=== PATIENT | male | born 2000 | race Caucasian/White ===

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

== ENCOUNTER 2020-05-20 16:19 | Inpatient (IN) ==
[2020-05-20] MEDS ORDERED: ALBUT/IPRATROP 3MG/0.5MG NEB 3 ML VIAL NEB ONE (16:51)
[2020-05-20] MEDS ORDERED: DEXAMETHASONE SOD INJ 10 MG/ML VIAL IV ONE (16:53)
[2020-05-20 17:09] LABS: Hematocrit (blood only) 48.5 % (42-52); Hemoglobin 16.9 g/dL (14.0-18.0); Immature Granulocytes # (auto) 0.03 K/uL (0.00-0.02); Immature Granulocytes % (auto) 0.2 %; Lymphocytes # (auto) 0.79 K/uL (1.2-3.4); Lymphocytes % (auto) 6.1 %; Mean Corpuscular Hemoglobin 31.4 pg (25-34); Mean Corpuscular Hgb Conc 34.8 g/dL (32-36); Mean Platelet Volume 11.5 fL (7.4-10.4); Monocytes # (auto) 0.17 K/uL (0.11-0.59); Monocytes % (auto) 1.3 %; Neutrophils # (auto) 11.89 K/uL (1.4-6.5); Neutrophils % (auto) 92.4 %; Platelet Count 216 K/uL (130-400); RDW Coefficient of Variation 12.8 % (11.5-14.5); Red Blood Count 5.39 M/uL (4.7-6.1); White Blood Count 12.88 K/uL (4.8-10.8)
[2020-05-20] MEDS ORDERED: MoRPHine SULFATE 4 MG/ML 1 ML CARP\\VIAL IV STA (17:21)
[2020-05-20] MEDS ORDERED: ONDANSETRON INJ 2 MG/ML 2 ML VIAL IV STA (17:21)
[2020-05-20 17:31] LABS: INR 1.2 (0.9-1.1); Partial Thromboplastin Time 26.4 Seconds (21.0-31.0); Prothrombin Time 11.9 Seconds (9.0-12.0)
[2020-05-20 17:32] LABS: Albumin Level 3.7 gm/dl (3.4-5.0); BUN Creatinine Ratio 13.6 (10-20); Calcium 8.7 mg/dl (8.5-10.1); Creatinine Clr Calc Pharmacy 109.5 ml/min; Est GFR (African American) 87.2; Est GFR (Non-African American) 75.2; Magnesium 1.9 mg/dl (1.8-2.4)
[2020-05-20 17:37] LABS: Albumin Globulin Ratio 1.2 (0.9-2); Bilirubin,Total 0.8 mg/dl (0.2-1); Globulin 3.1 gm/dl (2.5-4.0); Total Protein 6.8 gm/dl (6.4-8.2); Troponin I 0.015 ng/ml (0-0.045)
--- NOTE | 2020-05-20 18:02 | XRay Report ---
XR chest 1V portable HISTORY: 19 years-old Male Dyspnea acute shortness of breath COMPARISON: None TECHNIQUE: Portable AP view of the chest FINDINGS: Cardiac silhouette is normal in size. There is no pneumothorax or pleural effusion. Reticular opaciti es are noted along with ill-defined bilateral airspace opacities. Bones appear normal. IMPRESSION: Bilateral mixed interstitial and alveolar opacities are suggestive of a multifocal pneumo nitis. ACT 112: Negative or not required by law. The above report was generated using voice recognition software. It may contain grammatical, syntax o r spelling errors. Electronically signed by: Carlos Eduardo Bone M.D. 05/20/2020 6:00 PM
--- NOTE | 2020-05-20 18:47 | Emergency Department Note ---
Impression & Plan Pulmonary edema, Post-operative complication ED Provider Note NAME: LAVINIA BRITTON AGE: 19 SEX: M ARRIVES VIA: Ambulance INFORMANT: Patient, ED PROVIDER(S): Gabby Najera MD CHIEF COMPLAINT: Shortness of breath, postoperative left hip from PACU PLAN: Disposition: Inpatient Condition: Fair Referral: Hospitalist MEDICAL DECISION MAKING: This patient was evaluated and appeared to be in no significant distress. Patient was maintaining his oxygenation on 100% nonrebreather however had slight increased work of breathing. Chest x-ray confirms a pulmonary edema type picture although BNP is 6. Patient was placed on BiPAP and seemed to have significant improvement in his symptoms. Covid swab was obtained and is negative. He was negative in his preop work-up. A CT scan of the chest was performed to rule out pulmonary embolus given the patient's postoperative state. The study is negative for PE but is concerning for an infectious pneumonitis as opposed to pulmonary edema. Patient's clinical presentation is somewhat unclear although he does appear to be more stable on BiPAP. Case was discussed with the hospitalist service who will evaluate the patient for further management. Triage Nursing notes reviewed. Additional history obtained from Prior medical records reviewed Vital Signs: reviewed and remarkable for no significant abnormalities Differential diagnosis: Reactive airway disease, pneumonia, pneumothorax, COPD, CHF, infections, cardiac ischemia, pulmonary embolism, musculoskeletal, gastrointestinal, as well as other pathologies. ER treatment provided: DuoNeb treatment BiPAP IV dexamethasone Diagnostics interpreted by me: ECG: Normal sinus rhythm with sinus arrhythmia at 91 bpm. There is a rightward axis. RSR prime pattern suggesting a right intraventricular conduction delay. QTc is 432. Normal axis. No acute ST segment change. No PVC, no PAC Cardiac Monitoring: An order for cardiac monitoring was placed and the patient is noted to be in a sinus 109 beats per minute Laboratory studies: See below Imaging studies: XR chest 1V portable HISTORY: 19 years-old Male Dyspnea acute shortness of breath COMPARISON: None TECHNIQUE: Portable AP view of the chest FINDINGS: Cardiac silhouette is normal in size. There is no pneumothorax or pleural effusion. Reticular opacities are noted along with ill-defined bilateral a irspace opacities. Bones appear normal. IMPRESSION: Bilateral mixed interstitial and alveolar opacities are suggestive of a multifocal pneumonitis. ACT 112: Negative or not required by law. The above report was generated using voice recognition software. It may contain grammatical, syntax or spelling errors. Electronically signed by: Carlos Eduardo Bone M.D. 05/20/2020 6:00 PM Dictated: 05/20/201754Transcribed: 05/20/201754 CT angio chest PE protocol CT DOSE: 422.35 mGy.cm HISTORY: 19 years-old Male with PE. Acute shortness of breath. TECHNIQUE: Multiple CTA images of the chest were obtained after the intravenous administration of Optiray 320. Coronal and sagittal MIPS were obtained from the axial data set and were submitted for review. All measurements were obtained according to NASCET criteria. A dose lowering technique was utilized adhering to the principles of ALARA. COMPARISON: Chest radiograph of same day. FINDINGS: CTA: The heart is normal in size. No pericardial effusion. No thoracic aortic aneurysm or dissection. Patency of the imaged great vessels. The pulmonary artery is suboptimally opacified secondary to contrast bolus timing. No central pulmonary emboli identified. CT CHEST: Residual thymic tissue anterior mediastinum. Unremarkable thyroid. There is no adenopathy. No pneumothorax or pleural effusion. Extensive bilateral groundglass and alveolar opacities are noted within a centrilobular predominant distribution within all segments bilaterally demonstrating relative subpleural sparing. Trace amount of pneumomediastinum is noted which is seen along the right paratracheal tissues, right tracheoesophageal recess tracking along the right mainstem bronchus. Central airways are patent. No acute process of the imaged upper abdomen. Unremarkable soft tissues. Bones appear intact. There is no acute fracture. IMPRESSION: 1. Limited exam as above. No central pulmonary emboli identified. 2. Extensive bilateral groundglass and alveolar opacities with relative subpleural sparing is suggestive of an infectious or inflammatory pneumonitis with noncardiogenic pulmonary edema considered less likely. 3. Trace pneumomediastinum, possibly from bronchoalveolar injury. 4. No pleural effusion or adenopathy. ACT 112: Negative or not required by law. The above report was generated using voice recognition software. It may contain grammatical, syntax or spelling errors. Electronically signed by: Carlos Eduardo Bone M.D. 05/20/2020 7:53 PM Dictated: 05/20/201944Transcribed: 05/20/201944 Consultation(s): Hospitalist HPI: Blanca/M arrives for evaluation of low oxygen saturations and increased work of breathing postoperatively. The patient had a labrum tear and his left hip was operated on at the surgical center. Patient had an episode of stridor immediately postoperative on his way to the PACU. Shortly thereafter he developed tachypnea and hypoxia. According to the anesthesia notes, the patient is suspected to have a negative pressure pulmonary edema. Patient tested neg ative for Covid on 05/14/2020. He has had a cough since being in the PACU and was found to be in the mid 80s on oxygen mask by EMS. He was switched to nonrebreather and has been saturating in the mid 90s. Patient denies any fever, vomiting, chest pain. He is asking for food as he is hungry. ROS: See above HPI for pertinent positives & negatives. A total of 10 systems re viewed and were otherwise negative. PAST MEDICAL HISTORY:See Below PAST SURGICAL HISTORY:See Below FAMILY HISTORY:See Below SOCIAL HISTORY:See Below HOME MEDICATIONS:See Below ALLERGIES:See Below VITALS:See Below PHYSICAL EXAMINATION: Vital signs reviewed. General: Well-appearing 19-year-old male, in no significant distress. HEENT: No scleral icterus, PERRLA, neck supple. Atraumatic. Cardiovascular: Tachycardic but regular, no extra sounds. Pulmonary: Increased work of breathing, hypoxic on room air. Tachypnea on nonrebreather but maintaining oxygenation. Repetitive, dry cough. No significant crackles appreciated, wheezing type breath sounds appreciated Abdomen: Soft, nontender, nondistended, positive bowel sounds. Musculoskeletal: Atraumatic, no peripheral edema. Neurologic: Patient awake alert and oriented x 3 Skin: Warm, dry, no rash I have personally spent greater than 40 minutes of critical care time in the direct management of this patient. This includes bedside care, interpretation of diagnostic studies, and testing, discussion with consultants, patient, and family members, and other required patient management activities. This 40 minutes is in excess of all separately billable procedures. 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 Beliefs That Will Affect Care: None Current Living Situation: Other Feels Safe at Home: Yes Assistive Devices: None Allergies Allergies Allergy/AdvReac Type Severity Reaction Status Date / Time No Known Allergies Allergy Verified 05/20/20 18:34 Home Meds Home Medications Medication Instructions Recorded Confirmed diclofenac sodium 75 mg PO BID PRN 05/16/20 05/20/20 Results & Data (ED) Vital Signs Vital Signs - 24 hr 05/20/20 16:23 05/20/20 16:28 05/20/20 16:30 Temperature 36.9 C Temperature Source Oral Pulse Rate 100 H 82 99 H Pulse Rate [Right Finger] Pulse Rate from SpO2 Sensor 100 H 86 96 H Respiratory Rate 22 19 24 Respiratory Effort / Characteristics Spontaneous Respiratory Pattern Blood Pressure 125/72 125/72 Blood Pressure Mean 89 89 Pulse Oximetry 96 94 92 Oxygen Delivery Method Non-rebreather Non-rebreather Non-rebreather Oxygen Flow Rate 15 15 15 Fraction of Inspired Oxygen Sepsis Recent Fever Within 48 Hours No Sepsis New/Unexplained Change in Mental Status No Sepsis Action Taken by Nursing No Action Required Fraction of Inspired Oxygen - Titration Pulse Oximetry Post Tiitration 05/20/20 16:45 05/20/20 17:00 05/20/20 17:08 Temperature Temperature Source Pulse Rate 108 H 101 H Pulse Rate [Right Finger] 95 H Pulse Rate from SpO2 Sensor 105 H 104 H Respiratory Rate 21 22 12 Respiratory Effort / Characteristics Short of Breath Respiratory Pattern Blood Pressure Blood Pressure Mean Pulse Oximetry 96 95 99 Oxygen Delivery Method Non-rebreather Non-rebreather Non-rebreather Oxygen Flow Rate 15 15 15 Fraction of Inspired Oxygen Sepsis Recent Fever Within 48 Hours Sepsis New/Unexplained Change in Mental Status Sepsis Action Taken by Nursing Fraction of Inspired Oxygen - Titration Pulse Oximetry Post Tiitration 05/20/20 17:15 05/20/20 17:30 05/20/20 17:45 Temperature Temperature Source Pulse Rate 110 H 112 H 120 H Pulse Rate [Right Finger] Pulse Rate from SpO2 Sensor 110 H 111 H 120 H Respiratory Rate 25 H 22 21 Respiratory Effort / Characteristics Respiratory Pattern Blood Pressure Blood Pressure Mean Pulse Oximetry 94 96 92 Oxygen Delivery Method Non-rebreather Non-rebreather Non-rebreather Oxygen Flow Rate 15 15 15 Fraction of Inspired Oxygen Sepsis Recent Fever Within 48 Hours Sepsis New/Unexplained Change in Mental Status Sepsis Action Taken by Nursing Fraction of Inspired Oxygen - Titration Pulse Oximetry Post Tiitration 05/20/20 18:00 05/20/20 18:09 05/20/20 18:15 Temperature Temperature Source Pulse Rate 124 H 123 H 135 H Pulse Rate [Right Finger] Pulse Rate from SpO2 Sensor 128 H 137 H Respiratory Rate 20 19 25 H Respiratory Effort / Characteristics Non-Labored Spontaneous Respiratory Pattern Regular Blood Pressure Blood Pressure Mean Pulse Oximetry 98 100 96 Oxygen Delivery Method Non-rebreather BiPAP Oxygen Flow Rate 15 Fraction of Inspired Oxygen 30 30 Sepsis Recent Fever Within 48 Hours Sepsis New/Unexplained Change in Mental Status Sepsis Action Taken by Nursing Fraction of Inspired Oxygen - Titration Pulse Oximetry Post Tiitration 05/20/20 18:28 Temperature Temperature Source Pulse Rate Pulse Rate [Right Finger] Pulse Rate from SpO2 Sensor Respiratory Rate Respiratory Effort / Characteristics Respiratory Pattern Blood Pressure Blood Pressure Mean Pulse Oximetry 97 Oxygen Delivery Method BiPAP Non-rebreather Oxygen Flow Rate 15 Fraction of Inspired Oxygen Sepsis Recent Fever Within 48 Hours Sepsis New/Unexplained Change in Mental Status Sepsis Action Taken by Nursing Fraction of Inspired Oxygen - Titration 30 Pulse Oximetry Post Tiitration 98 Laboratory Data Result diagrams: 05/20/20 16:50 05/20/20 16:50 Lab Results 05/20/20 05/20/20 05/20/20 Range/Units 16:50 16:50 16:50 WBC 12.88 H (4.8-10.8) K/uL RBC 5.39 (4.7-6.1) M/uL Hgb 16.9 (14.0-18.0) g/dL Hct 48.5 (42-52) % MCV 90.0 (80-100) fL MCH 31.4 (25-34) pg MCHC 34.8 (32-36) g/dL RDW Std Deviation 42.0 (36.4-46.3) fL RDW Coeff of Ashley 12.8 (11.5-14.5) % Plt Count 216 (130-400) K/uL MPV 11.5 H (7.4-10.4) fL Immature Gran % (Auto) 0.2 % Neut % (Auto) 92.4 % Lymph % (Auto) 6.1 % [place] % (Auto) 1.3 % Eos % (Auto) 0.0 % Baso % (Auto) 0.0 % Neut # (Auto) 11.89 H (1.4-6.5) K/uL Lymph # (Auto) 0.79 L (1.2-3.4) K/uL [place] # (Auto) 0.17 (0.11-0.59) K/uL Eos # (Auto) 0.00 (0-0.5) K/uL Baso # (Auto) 0.00 (0-0.2) K/uL Immature Gran # (Auto) 0.03 H (0.00-0.02) K/uL PT 11.9 (9.0-12.0) Seconds INR 1.2 H (0.9-1.1) APTT 26.4 (21.0-31.0) Seconds PTT Ratio 1.0 Sodium 142 (136-145) mmol/L Potassium 4.0 (3.5-5.1) mmol/L Chloride 109 H (98-107) mmol/L Carbon Dioxide 26 (21-32) mmol/L Anion Gap 7.0 (3-11) BUN 18 (7-18) mg/dl Creatinine 1.34 (0.6-1.4) mg/dl Est Cr Clr Drug Dosing 109.5 ml/min Est GFR ( Amer) 87.2 Est GFR (Non-Af Amer) 75.2 BUN/Creatinine Ratio 13.6 (10-20) Glucose 164 H (70-99) mg/dl Calcium 8.7 (8.5-10.1) mg/dl Magnesium 1.9 (1.8-2.4) mg/dl Total Bilirubin 0.8 (0.2-1) mg/dl AST 26 (15-37) U/L ALT 23 (12-78) U/L Alkaline Phosphatase 93 (45-117) U/L Troponin I 0.015 (0-0.045) ng/ml NT-Pro-B Natriuret Pep 6 (0-450) pg/ml Total Protein 6.8 (6.4-8.2) gm/dl Albumin 3.7 (3.4-5.0) gm/dl Globulin 3.1 (2.5-4.0) gm/dl Albumin/Globulin Ratio 1.2 (0.9-2) COVID-19 Eval Order SARS-CoV-2, RNA, NAAT (NEGATIVE) 05/20/20 05/20/20 Range/Units 17:06 17:06 WBC (4.8-10.8) K/uL RBC (4.7-6.1) M/uL Hgb (14.0-18.0) g/dL Hct (42-52) % MCV (80-100) fL MCH (25-34) pg MCHC (32-36) g/dL RDW Std Deviation (36.4-46.3) fL RDW Coeff of Ashley (11.5-14.5) % Plt Count (130-400) K/uL MPV (7.4-10.4) fL Immature Gran % (Auto) % Neut % (Auto) % Lymph % (Auto) % [place] % (Auto) % Eos % (Auto) % Baso % (Auto) % Neut # (Auto) (1.4-6.5) K/uL Lymph # (Auto) (1.2-3.4) K/uL [place] # (Auto) (0.11-0.59) K/uL Eos # (Auto) (0-0.5) K/uL Baso # (Auto) (0-0.2) K/uL Immature Gran # (Auto) (0.00-0.02) K/uL PT (9.0-12.0) Seconds INR (0.9-1.1) APTT (21.0-31.0) Seconds PTT Ratio Sodium (136-145) mmol/L Potassium (3.5-5.1) mmol/L Chloride (98-107) mmol/L Carbon Dioxide (21-32) mmol/L Anion Gap (3-11) BUN (7-18) mg/dl Creatinine (0.6-1.4) mg/dl Est Cr Clr Drug Dosing ml/min Est GFR ( Amer) Est GFR (Non-Af Amer) BUN/Creatinine Ratio (10-20) Glucose (70-99) mg/dl Calcium (8.5-10.1) mg/dl Magnesium (1.8-2.4) mg/dl Total Bilirubin (0.2-1) mg/dl AST (15-37) U/L ALT (12-78) U/L Alkaline Phosphatase (45-117) U/L Troponin I (0-0.045) ng/ml NT-Pro-B Natriuret Pep (0-450) pg/ml Total Protein (6.4-8.2) gm/dl Albumin (3.4-5.0) gm/dl Globulin (2.5-4.0) gm/dl Albumin/Globulin Ratio (0.9-2) COVID-19 Eval Order Covid19 [facility] SARS-CoV-2, RNA, NAAT NEGATIVE (NEGATIVE) Administered Medications Vancomycin HCl 2,500 mg/ (Sodium Chloride) 550 mls @ 200 mls/hr IV ONE ONE Stop: 05/20/20 23:14 Last Admin: 05/20/20 20:58 Dose: 200 mls/hr Documented by: [id number] Discontinued Medications Albuterol (Albut/Ipratrop 3mg/0.5mg Neb 3 Ml Vial) 12 ml NEB ONE ONE Stop: 05/20/20 16:52 Last Admin: 05/20/20 17:05 Dose: 12 ml Documented by: [id number] Dexamethasone (Dexamethasone Sod Inj 10 Mg/Ml Vial) 6 mg IV NOW ONE Stop: 05/20/20 16:54 Last Admin: 05/20/20 16:59 Dose: 6 mg Documented by: [id number] Piperacillin Sod/Tazobactam (Sod 3.375 gm/ Dextrose) 115 mls @ 230 mls/hr IV ONE ONE; Protocol Stop: 05/20/20 20:59 Last Infusion: 05/20/20 21:37 Dose: 0 mls/hr Documented by: [id number] Admin: 05/20/20 21:03 Dose: 230 mls/hr Documented by: [id number] Ioversol (Optiray 320 125ml) 120 ml IV ONCE ONE Stop: 05/20/20 19:39 Last Admin: 05/20/20 19:38 Dose: 120 ml Documented by: [id number] Morphine Sulfate (Morphine Sulfate 4 Mg/Ml 1 Ml Carp\Vial) 4 mg IV NOW STA Stop: 05/20/20 17:22 Last Admin: 05/20/20 17:26 Dose: 4 mg Documented by: [id number] Ondansetron HCl (Ondansetron Inj 2 Mg/Ml 2 Ml Vial) 4 mg IV NOW STA Stop: 05/20/20 17:22 Last Admin: 05/20/20 17:26 Dose: 4 mg Documented by: [id number] Discharge Plan Visit Data Chief Complaint: Shortness of Breath/Dyspnea Stated Complaint: SOB ED Provider: Gabby Najera Discharge Problem: Pulmonary edema, Post-operative complication Patient Disposition: Admitted As Inpatient Discharge Instructions Interventions: ED Discharge Assessment Last Done: 05/20/20 20:12 Discharge Problem: Pulmonary edema Qualifiers: Chronicity: acute Qualified Code(s): J81.0 - Acute pulmonary edema Post-operative complication Qualifiers: Surgical complication system/body Area: respiratory system Surgical compli cation type: unspecified Procedure type: non-respiratory system Qualified Code(s): J95.89 - Other postprocedural complications and disorders of respiratory system, not elsewhere classified
--- NOTE | 2020-05-20 19:32 | History & Physical Report ---
Date of Service May 20, 2020 Assessment & Plan (1) Pulmonary edema: 19 yo healthy male admitted for acute post-op hypoxia after extubation requiring bipap support. Acute Post op Hypoxemic Respiratory Failure - CT showing extensive bilateral groundglass and alveolar opacities showing inflammatory pneumonitis and noncardiogenic pulmonary edema. trace pneumomediastinum. - possible aspiration pneumonia in the setting of hypoxia after extubation; covering with zosyn and vanc for hospital associated pathogens - Oxygen support with continuous bipap, titrating down as tolerated - WBC elevated to 12k, tachycardic after receiving dexamethasone and albuterol treatment, afebrile - will continue to closely monitor oxygenation status - ABG pending - proBNP 6; unlikely acute HF, troponin negative FEN/GI: lactated ringers @ 100ml/hr, NPO DVT PPX: daily aspirin Code Status: Full Code Dispo: admission to Med/Surg with Tele (2) Post-operative complication: (3) Hypoxemia requiring supplemental oxygen: History of Present Illness 19 yo M with no pmh [facility] undergoing an operation for labral tear of the hip. Per anesthesia, sats were in the 80s with some concern for stridorous breathing after extubation, continued hypoxia on oxymask, improved on bipap. [facility] and [facility] care. At this time, patient denies any complaints other than mild hunger. No SOB on bipap, mild palpitations with tachycardia. Hip pain controlled with morphine given in ER. Primary Care Provider: PT DECLINED Allergies Allergy/AdvReac Type Severity Reaction Status Date / Time No Known Allergies Allergy Verified 05/20/20 18:34 Home Medications Medication Instructions Recorded Confirmed Type diclofenac sodium 75 mg PO BID PRN 05/16/20 05/20/20 History aspirin 81 mg PO DAILY 10 Days #10 tab 05/22/20 Rx Past Med/Surg History Medical History (Updated 05/20/20 @ 21:54 by Gabby Najera MD) Labral tear of hip joint No known health problems Surgical History Hx of wisdom tooth extraction Social History Smoking Status: Never smoker Second Hand Exposure: No; Hx Alcohol Use: No Hx Substance Use: No Preferred Language: Icelandic Communication Ability: Effective [employer] Required: No Beliefs That Will Affect Care: None Current Living Situation: Other Feels Safe at Home: Yes Assistive Devices: Crutches Review of Systems Constitutional: no fever, no chills, no body aches and no fatigue Respiratory: + pain on inspiration; no cough and no dyspnea Cardiovascular: + palpitations; no chest pain, no dyspnea and no edema Gastrointestinal: no abdominal pain, no nausea, no vomiting, no constipation and no diarrhea/loose stools Musculoskeletal: + joint pain Physical Exam Physical Exam: Constitutional: healthy appearing young adult in NAD on bipap Eyes: EOMI, pupils equal and reactive bilaterally, no scleral icterus Cardiac: tachycardic, regular rhythm, no murmurs, gallops or rubs. Normal S1, S2 Pulm: CTA BL, no wheezes, crackles BL at bases of lungs Abd: soft, nontender, nondistended, normal bowel sounds, no rebound or guarding Extremities: 2+ peripheral pulses, no edema Neuro: no focal deficits, moving all 4 limbs, A&Ox3, conversational Results & Data Results & Data ([facility]) Vital Signs (Past 12 Hours) Vital Signs Temp Pulse Pulse Resp BP Pulse Ox 05/20/20 18:28 97 05/20/20 18:15 135 H 25 H 96 05/20/20 18:09 123 H 19 100 05/20/20 18:00 124 H 20 98 05/20/20 17:45 120 H 21 92 05/20/20 17:30 112 H 22 96 05/20/20 17:15 110 H 25 H 94 05/20/20 17:08 95 H 12 99 05/20/20 17:00 101 H 22 95 05/20/20 16:45 108 H 21 96 05/20/20 16:30 36.9 C 99 H 24 125/72 92 05/20/20 16:28 82 19 94 05/20/20 16:23 100 H 22 125/72 96 Laboratory Results WBC 12.88 K/uL (4.8-10.8) H 05/20/20 16:50 RBC 5.39 M/uL (4.7-6.1) 05/20/20 16:50 Hgb 16.9 g/dL (14.0-18.0) 05/20/20 16:50 Hct 48.5 % (42-52) 05/20/20 16:50 MCV 90.0 fL (80-100) 05/20/20 16:50 MCH 31.4 pg (25-34) 05/20/20 16:50 MCHC 34.8 g/dL (32-36) 05/20/20 16:50 RDW Std Deviation 42.0 fL (36.4-46.3) 05/20/20 16:50 RDW Coeff of Ashley 12.8 % (11.5-14.5) 05/20/20 16:50 Plt Count 216 K/uL (130-400) 05/20/20 16:50 MPV 11.5 fL (7.4-10.4) H 05/20/20 16:50 Immature Gran % (Auto) 0.2 % 05/20/20 16:50 Neut % (Auto) 92.4 % 05/20/20 16:50 Lymph % (Auto) 6.1 % 05/20/20 16:50 [place] % (Auto) 1.3 % 05/20/20 16:50 Eos % (Auto) 0.0 % 05/20/20 16:50 Baso % (Auto) 0.0 % 05/20/20 16:50 Neut # (Auto) 11.89 K/uL (1.4-6.5) H 05/20/20 16:50 Lymph # (Auto) 0.79 K/uL (1.2-3.4) L 05/20/20 16:50 [place] # (Auto) 0.17 K/uL (0.11-0.59) 05/20/20 16:50 Eos # (Auto) 0.00 K/uL (0-0.5) 05/20/20 16:50 Baso # (Auto) 0.00 K/uL (0-0.2) 05/20/20 16:50 Immature Gran # (Auto) 0.03 K/uL (0.00-0.02) H 05/20/20 16:50 PT 11.9 Seconds (9.0-12.0) 05/20/20 16:50 INR 1.2 (0.9-1.1) H 05/20/20 16:50 APTT 26.4 Seconds (21.0-31.0) 05/20/20 16:50 PTT Ratio 1.0 05/20/20 16:50 Sodium 142 mmol/L (136-145) 05/20/20 16:50 Potassium 4.0 mmol/L (3.5-5.1) 05/20/20 16:50 Chloride 109 mmol/L (98-107) H 05/20/20 16:50 Carbon Dioxide 26 mmol/L (21-32) 05/20/20 16:50 Anion Gap 7.0 (3-11) 05/20/20 16:50 BUN 18 mg/dl (7-18) 05/20/20 16:50 Creatinine 1.34 mg/dl (0.6-1.4) 05/20/20 16:50 Est Cr Clr Drug Dosing 109.5 ml/min 05/20/20 16:50 Est GFR ( Amer) 87.2 05/20/20 16:50 Est GFR (Non-Af Amer) 75.2 05/20/20 16:50 BUN/Creatinine Ratio 13.6 (10-20) 05/20/20 16:50 Glucose 164 mg/dl (70-99) H 05/20/20 16:50 Calcium 8.7 mg/dl (8.5-10.1) 05/20/20 16:50 Magnesium 1.9 mg/dl (1.8-2.4) 05/20/20 16:50 Total Bilirubin 0.8 mg/dl (0.2-1) 05/20/20 16:50 AST 26 U/L (15-37) 05/20/20 16:50 ALT 23 U/L (12-78) 05/20/20 16:50 Alkaline Phosphatase 93 U/L (45-117) 05/20/20 16:50 Troponin I 0.015 ng/ml (0-0.045) 05/20/20 16:50 NT-Pro-B Natriuret Pep 6 pg/ml (0-450) 05/20/20 16:50 Total Protein 6.8 gm/dl (6.4-8.2) 05/20/20 16:50 Albumin 3.7 gm/dl (3.4-5.0) 05/20/20 16:50 Globulin 3.1 gm/dl (2.5-4.0) 05/20/20 16:50 Albumin/Globulin Ratio 1.2 (0.9-2) 05/20/20 16:50 COVID-19 Eval Order Covid19 IDNow [facility] 05/20/20 17:06 SARS-CoV-2, RNA, NAAT NEGATIVE (NEGATIVE) 05/20/20 17:06 Supervising Physician Co-Signing Physician Notes Attending addendum: I have physically seen this patient, have supervised the medical residents activities, and agree with the H&P unless as otherwise noted. Assessment and Plan: Acute respiratory failure with hypoxemia status post extubation- The patient will be admitted to telemetry for serial cardiac enzymes, serial EKG's, cardiac rhythm monitoring and a 2-D echocardiogram with Dopplers. Hypoxia developed status post extubation following orthopedic procedure Differential is pneumonitis versus noncardiogenic pulmonary edema Continue BiPAP overnight, and titrate over to nasal cannula as improves. Placed on vancomycin IV and Zosyn IV to cover aspiration Duonebs every 4 hours while awake and every 2 hours when necessary. Remaining orders and notations as noted Resident Activity Tracking Resident Involvement: Resident Care Provided Care Provided: Adult Hospital Medicine (1) Post-operative complication Procedure type: non-respiratory system Surgical complication system/body Area: respiratory system Surgical complication type: unspecified Qualified Code(s): J95.89 - Other postprocedural complications and disorders of respiratory system, not elsewhere classified (2) Pulmonary edema Chronicity: acute Qualified Code(s): J81.0 - Acute pulmonary edema
[2020-05-20] MEDS ORDERED: OPTIRAY 320 125ml IV ONE (19:38)
--- NOTE | 2020-05-20 19:54 | CT Scan Report ---
CT angio chest PE protocol CT DOSE: 422.35 mGy.cm HISTORY: 19 years-old Male with PE. Acute shortness of breath. TECHNIQUE: Multiple CTA images of the chest were obtained after the intravenous administration of Opt iray 320. Coronal and sagittal MIPS were obtained from the axial data set and were submitted for rev iew. All measurements were obtained according to NASCET criteria. A dose lowering technique was util ized adhering to the principles of ALARA. COMPARISON: Chest radiograph of same day. FINDINGS: CTA: The heart is normal in size. No pericardial effusion. No thoracic aortic aneurysm or dissection. Chavez ncy of the imaged great vessels. The pulmonary artery is suboptimally opacified secondary to contrast bolus timing. No central pulmonary emboli identified. CT CHEST: Residual thymic tissue anterior mediastinum. Unremarkable thyroid. There is no adenopathy. No pneumot horax or pleural effusion. Extensive bilateral groundglass and alveolar opacities are noted within a centrilobular predominant distribution within all segments bilaterally demonstrating relative subpleu ral sparing. Trace amount of pneumomediastinum is noted which is seen along the right paratracheal ti ssues, right tracheoesophageal recess tracking along the right mainstem bronchus. Central airways are patent. No acute process of the imaged upper abdomen. Unremarkable soft tissues. Bones appear intact. There i s no acute fracture. IMPRESSION: 1. Limited exam as above. No central pulmonary emboli identified. 2. Extensive bilateral groundglass and alveolar opacities with relative subpleural sparing is suggest reji of an infectious or inflammatory pneumonitis with noncardiogenic pulmonary edema considered less likely. 3. Trace pneumomediastinum, possibly from bronchoalveolar injury. 4. No pleural effusion or adenopathy. ACT 112: Negative or not required by law. The above report was generated using voice recognition software. It may contain grammatical, syntax o r spelling errors. Electronically signed by: Carlos Eduardo Bone M.D. 05/20/2020 7:53 PM
[2020-05-20] MEDS ORDERED: VANCOMYCIN HCL 1,000 MG/270 ML BAG IV STA (20:07)
[2020-05-20] MEDS ORDERED: VANCOMYCIN CONSULT ACTIVE PRN (20:07)
[2020-05-20] MEDS ORDERED: PIPERACILL/TAZOBAC CONSULT ACTIVE PRN (20:07)
[2020-05-20] MEDS ORDERED: PIPERACILLIN/TAZOBACTAM 3.375 GM in DEXTROSE 5% 100 ML IV ONE (20:30)
[2020-05-20] MEDS ORDERED: VANCOMYCIN HCL 2,500 MG in SODIUM CHLORIDE 0.9% 500 ML IV ONE (20:30)
[2020-05-20] MEDS ORDERED: MoRPHine SULFATE 4 MG/ML 1 ML CARP\\VIAL IV PRN (20:43)
[2020-05-20 21:06] LABS: Base Excess ABG -4.6 mEq/L (-9-1.8); HCO3 ABG 21 mmol/L (19-24); Oxygen Saturation ABG 96.1 % (90-95); PCO2 ABG 38 mmHg (35-46); PO2 ABG 82 mmHg (80-95); pH ABG 7.35 (7.35-7.45)
[2020-05-20 21:07] LABS: Allen Test Pos (Pos)
[2020-05-20] MEDS: ALBUT/IPRATROP 3MG/0.5MG NEB 3 ML VIAL NEB SCH (22:49)
[2020-05-21 00:32] LABS: Appearance Urine Clear (Clear); Bilirubin Urine Negative (Negative); Blood Urine Negative (Negative); Color Urine Yellow; Glucose Urine UA Trace (Negative); Ketones Urine Trace (Negative); Leukocyte Esterase Urine Negative (Negative); Nitrite Urine Negative (Negative); Protein Urine Negative (Negative); Specific Gravity Urine > 1.045 (1.000-1.030); Urobilinogen Urine Negative (Negative)
[2020-05-21] MEDS: PIPERACILLIN/TAZOBACTAM 3.375 GM in DEXTROSE 5% 100 ML IV SCH ×2 (03:25→09:46)
[2020-05-21] MEDS: ACETAMINOPHEN 325 MG TAB PO PRN ×2 (03:41→21:35)
[2020-05-21] MEDS ORDERED: VANCOMYCIN HCL 1,500 MG in SODIUM CHLORIDE 0.9% 500 ML IV SCH (06:00)
[2020-05-21 06:56] LABS: Creatinine Clr Calc Pharmacy 126.4 ml/min; Est GFR (African American) 103.8; Est GFR (Non-African American) 89.5
[2020-05-21] MEDS: ALBUT/IPRATROP 3MG/0.5MG NEB 3 ML VIAL NEB SCH ×4 (07:22→19:31)
[2020-05-21] MEDS ORDERED: DICLOFENAC SODIUM 75 MG TABCR PO ONE (08:45)
[2020-05-21] MEDS: ASPIRIN 81 MG ECTAB PO SCH (08:53)
[2020-05-21] MEDS ORDERED: AMPICILLIN/SULBACTAM SOD 1,500 MG in 0.9 % SODIUM CHLORIDE 100 ML IV SCH (10:30)
[2020-05-21] MEDS: oxyCODONE HCL IR 5 MG TAB (IMMEDIATE RELEASE) PO PRN ×2 (12:06→16:52)
--- NOTE | 2020-05-21 15:27 | Orthopedic Progress Note ---
Date of Service May 21, 2020 Assessment & Plan (1) Labral tear of hip joint: TTWB LLE on crutches. Wear brace. Keep dressing c/d/i. Follow-up in our physical therapy clinic later this week after discharge. Aspirin for DVT prophylaxis Present on Admission?: Yes Admission and Anticipated Discharge Date Admission Date: May 20, 2020 Subjective Patient seen on the floor around 1 pm. He is POD 1 s/p L hip arthroscopy, labrum repair, acetabuloplasty, femoroplasty and synovectomy. Admitted for post-extubation pulmonary edema. Breathing is much better today. Hip pain well controlled. Brace fitting OK Physical Exam Physical Exam: Resting comfortably in bed, no oxygen, maintaining his O2 sats. Alert and oriented x 3. Hip exam is NVI. Results & Data ([facility]) Vital Signs (Past 12 Hours) Vital Signs Temp Pulse Resp BP BP Pulse Ox 05/21/20 15:18 37.0 C 82 18 92/56 L 90 05/21/20 11:09 36.6 C 84 20 120/67 89 L 05/21/20 11:08 101 H 18 89 L 05/21/20 07:32 36.8 C 94 H 18 115/70 97 05/21/20 07:22 97 H 18 97 05/21/20 03:48 36.6 C 97 H 20 106/58 L 93
--- NOTE | 2020-05-21 17:04 | Hospitalist Progress Note ---
Date of Service May 21, 2020 Assessment & Plan (1) Pulmonary edema: 19 yo otherwise healthy male admitted for acute post-operative hypoxia after extubation following a planned hip labral repair surgery. Acute Post op Hypoxemic Respiratory Failure - CT on admission showing extensive bilateral groundglass and alveolar opacities diffusely throughout bilateral lung thurston - aspiration pneumonia unlikley given diffuse appearance of opacities on CT scan, only mild elevation on WBC (12.8) and CRP, normal procal and lack of fever. Antibiotics discontinued. - BNP not elevated. Trop undetectable. No concern for acute heart failure - Suspect this is secondary to non-cardiogenic pulmonary edema related to anesthesia from hip surgery - required Bipap on admission. currently saturating 93% on room air. Continue to monitor patient overnight - goal is to have O2 sat > 92 while at rest and when ambulating - continue Albuterol Neb QID - Dexamethasone 6mg IV - incentive spirometry to prevent atelectasis Leukocytosis - mild elevated in WBC at 12.8 - likely reactive - repeat CBC in am Hip Labral Repair - POD 1 - Tylenol for mild oxycodone, for moderate pain and morphine for severe pain - ASA for DVT ppx FEN/GI: Regular diet DVT PPX: daily aspirin (per ortho) Code Status: Full Code Dispo: Med/Surg with tele (2) Post-operative complication: (3) Hypoxemia requiring supplemental oxygen: Admission and Anticipated Discharge Date Admission Date: May 20, 2020 Supervising Physician Co-Signing Physician Notes I personally examined the patient and verified all bowie points of history and exam, discussed case, and agree with decision making with Dr Pratt. Seen twice today. Both times he is feeling progressively better. Definitely better than yesterday whenever we see him this morning, and this afternoon is feeling better this morning. Throughout the day he is coughing up pink frothy sputum that progresses to somewhat bloody. He has a degree of substernal discomfort and dyspnea on exertion. Obviously has hip pain as well. Vitals noted, in general he is awake and alert pleasant no distress. HEENT normocephalic atraumatic mucous membranes moist. Lungs are coarse but only minimally so, overall clear no rales rhonchi or wheezes good effort no accessory muscle use. CT scan both report and images reviewed, reviewed with patient as well. Acute hypoxic respiratory failureappears to be pulmonary edema relatedthe pulmonary edema seems to be a vasodilatory reaction either to the anesthesia or possibly to negative pressure in his chest if he was biting on the tube or some other such insults. He does appear to be improving rather rapidly, but at this point time I do not believe he is quite safe to be home and without medical supervision. Considered a dose of diuretics, but his blood pressures are a little bit on the low side therefore we will give him another dose of steroids and continue to follow. Hopefully home tomorrow. Otherwise as above. Subjective Did well on BiPAP overnight. breathing much better today - feels as though he has a lot to cough up from lungs. He denies any smoking of tobacco, marijuana or vaping. He is hungry and asks for a double lunch. Review of Systems Respiratory: + cough Physical Exam Constitutional: WD/WN, vitals as above cooperative; no acute distress Eyes: + anicteric sclerae ENMT: external ear and nose normal, oropharynx normal Neck: trachea midline and + tracheal deviation Respiratory: normal respiratory effort; no respiratory distress, no labored breathing and not tachypneic Auscultation: no crackles, no wheezes and no vesicular breath sounds (coarse) Cardiovascular: RRR, no murmur, no edema Heart Sounds: normal S1 and normal S2 Gastrointestinal (Abdomen): normal bowel sounds, soft, nontender, no hepatosplenomegaly Skin: no rashes, warm and dry Neurologic: No focal deficit Psychiatric: A+Ox3, euthymic affect Results & Data Results & Data ([facility]) Vital Signs (Past 12 Hours) Vital Signs Temp Pulse Resp BP BP Pulse Ox 05/21/20 15:21 101 H 18 93 05/21/20 15:18 37.0 C 82 18 92/56 L 90 05/21/20 11:09 36.6 C 84 20 120/67 89 L 05/21/20 11:08 101 H 18 89 L 05/21/20 07:32 36.8 C 94 H 18 115/70 97 05/21/20 07:22 97 H 18 97 Resident Activity Tracking Resident Involvement: Resident Care Provided Care Provided: Adult Hospital Medicine (1) Post-operative complication Procedure type: non-respiratory system Surgical complication system/body Area: respiratory system Surgical complication type: unspecified Qualified Code(s): J95.89 - Other postprocedural complications and disorders of respiratory system, not elsewhere classified (2) Pulmonary edema Chronicity: acute Qualified Code(s): J81.0 - Acute pulmonary edema
[2020-05-21] MEDS ORDERED: DEXAMETHASONE SOD INJ 10 MG/ML VIAL IV ONE (17:28)
--- NOTE | 2020-05-21 17:31 | Billing Data ---
Date of Service May 21, 2020 Coding Level of Care Code 61806 Subseq Hosp Care Lvl 3
[2020-05-21] MEDS ORDERED: dexAMETHasone 6 MG in SYRINGE 0 ML IV ONE (17:45)
[2020-05-21] MEDS ORDERED: VANCOMYCIN TROUGH ONE (21:30)
--- NOTE | 2020-05-22 05:48 | Electrocardiogram Report ---
Test Reason : Blood Pressure : / mmHG Vent. Rate : 091 BPM Atrial Rate : 091 BPM P-R Int : 140 ms QRS Dur : 120 ms QT Int : 352 ms P-R-T Axes : 056 093 035 degrees QTc Int : 432 ms Normal sinus rhythm with sinus arrhythmia Rightward axis Right bundle branch block No previous ECGs available Confirmed by Julio Stephenson ([id number]) on 05/22/2020 5:47:52 AM Referred By: REFERRED SELF Confirmed By:Julio Stephenson
[2020-05-22 07:37] LABS: Hematocrit (blood only) 40.9 % (42-52); Immature Granulocytes # (auto) 0.02 K/uL (0.00-0.02); Immature Granulocytes % (auto) 0.2 %; Lymphocytes # (auto) 2.05 K/uL (1.2-3.4); Lymphocytes % (auto) 18.3 %; Mean Corpuscular Hgb Conc 34.2 g/dL (32-36); Mean Corpuscular Volume 90.7 fL (80-100); Mean Platelet Volume 10.9 fL (7.4-10.4); Monocytes # (auto) 0.93 K/uL (0.11-0.59); Monocytes % (auto) 8.3 %; Neutrophils # (auto) 8.19 K/uL (1.4-6.5); Neutrophils % (auto) 73.2 %; Platelet Count 175 K/uL (130-400); RDW Coefficient of Variation 13.1 % (11.5-14.5); RDW Standard Deviation 43.5 fL (36.4-46.3); Red Blood Count 4.51 M/uL (4.7-6.1); White Blood Count 11.19 K/uL (4.8-10.8)
[2020-05-22] MEDS: ASPIRIN 81 MG ECTAB PO SCH (08:07)
[2020-05-22] MEDS: ALBUT/IPRATROP 3MG/0.5MG NEB 3 ML VIAL NEB SCH (08:09)
[2020-05-22] MEDS ORDERED: FUROSEMIDE 10 MG in SYRINGE 0 ML IV ONE (10:00)
[2020-05-22] MEDS: ACETAMINOPHEN 325 MG TAB PO PRN (12:31)
--- NOTE | 2020-05-22 14:31 | Discharge Summary ---
Date of Service May 22, 2020 Admission HPI Per Admitting Provider 19 yo M with no pmh sent directly from [facility] after undergoing an operation for labral tear of the hip. Per anesthesia, sats were in the 80s with some concern for stridorous breathing after extubation, continued hypoxia on oxymask, improved on bipap. Transferred directly to ER from [facility] for observation and continuing care. At this time, patient denies any complaints other than mild hunger. No SOB on bipap, mild palpitations with tachycardia. Hip pain controlled with morphine given in ER. Admission Exam Per Admitting Provider Constitutional: healthy appearing young adult in NAD on bipap Eyes: EOMI, pupils equal and reactive bilaterally, no scleral icterus Cardiac: tachycardic, regular rhythm, no murmurs, gallops or rubs. Normal S1, S2 Pulm: CTA BL, no wheezes, crackles BL at bases of lungs Abd: soft, nontender, nondistended, normal bowel sounds, no rebound or guarding Extremities: 2+ peripheral pulses, no edema Neuro: no focal deficits, moving all 4 limbs, A&Ox3, conversational Principal Diagnosis Non-cardiogenic pulmonary edema Discharge Exam Constitutional WD/WN, vitals as above cooperative; no acute distress Eyes + anicteric sclerae ENMT external ear and nose normal, oropharynx normal Neck trachea midline and + tracheal deviation Respiratory normal respiratory effort; no respiratory distress, no labored breathing and not tachypneic Auscultation: no crackles, no wheezes and no vesicular breath sounds (coarse) Cardiovascular RRR, no murmur, no edema Heart Sounds: normal S1 and normal S2 Gastrointestinal (Abdomen) normal bowel sounds, soft, nontender, no hepatosplenomegaly Skin no rashes, warm and dry Psychiatric A+Ox3, euthymic affect Discharge Data Allergies Allergy/AdvReac Type Severity Reaction Status Date / Time No Known Allergies Allergy Verified 05/20/20 18:34 Consultations 05/20/20 18:56 ED Decision to Admit Stat Ordered Studies 05/20/20 17:02 CT angio chest PE protocol Stat Hospital Course (1) Pulmonary edema: Acute Post op Hypoxemic Respiratory Failure 19 yo otherwise healthy male admitted for acute post-operative hypoxia after extubation following a planned hip labral repair surgery. CT on admission showing extensive bilateral groundglass and alveolar opacities diffusely throu ghout bilateral lung thurston. He required Bipap on admission but was eventually transitioned to nasal cannula. - aspiration pneumonia unlikley given diffuse appearance of opacities on CT scan, only mild elevation on WBC (12.8) and CRP, normal procal and lack of fever. Patient was placed on vancomycin and Zosyn on admission, but antibiotics discontinued on day 2 of hospital stay. - BNP not elevated. Trop undetectable. No concern for acute heart failure - Suspect this was secondary to non-cardiogenic pulmonary edema related to anesthesia from hip surgery - he was treated with albuterol nebulizers + dexamethasone - on day of discharge: he was saturating 93% on room air. While ambulating, patient would desat to low 70s. He was counseled about the severity of this drop - and the risks of anoxic brain/heart injury. Patient was ultimately discharged with the agreement that he would limit his physical activity over the next several days while monitoring his oxygen saturation at home. He was instructed to return immediately return to the ED if the O2 sat < 90 for a period of 5 minutes or longer. Anticipate his breathing will improve gradually over the next several days - if he finds himself not developing increased stamina with minimal activity, he was directed to contact a doctor or return to the hospital. Leukocytosis - improving - mild elevated in WBC at 12.8 on admission, down to 11 today - likely reactive; no suspicion for infection at this time Hip Labral Repair - POD 2 - pain has been well controlled. Continue Tylenol prn - ASA 81mg daily for DVT ppx (per ortho) - patient will follow up with Ortho/PT later this week (2) Post-operative complication: (3) Hypoxemia requiring supplemental oxygen: Total Time Total Time Spent Total Time Spent (In Minutes): Greater than 30 Discharge Plan Discharge Items Patient Disposition: Home - Self-Care Reason For Visit: Negative pressure pulmonary edema Discharge Diagnosis: Non-cardiogenic pulmonary edema Activity: Resume your previous activity Non-emergency contact: Primary Care Provider and Surgeon Call non-emergency contact if: your symptoms worsen and your pain is not controlled Follow-up/Referrals: Candida Pratt MD [Resident] - PT,DECLINED [Primary Care Provider] - Diet: Regular Addtl Attending Provider Instructions: You were sent to [facility] directly from the outpatient surgery center on 05/20/20, as you had difficulty breathing after being anesthetized from your hip labral repair procedure. On arrival to our ED, you were placed on a BiPAP mask for breathing (this is a mask that provides pressure to help open up your lungs - it is similar to a CPAP mask that some people wear at night for obstructive sleep apnea). You were not placed on a ventilator. A cat scan of your chest was obtained in our emergency department, which showed significant inflammation and congestion in your lungs. You were initially placed on antibiotics, but these were discontinued when our suspicion for infection (pneumonia) lowered. You were treated with IV steroids and an albuterol nebulizer - these medications helped open up your airways and reduce the inflammation. Your breathing improved while under our care. As for what caused your breathing troubles - we suspect they were from an inflammatory reaction/response to the particular anesthesia medication given to you prior to your hip surgery. We recommend you ask for a copy of the medications that were administered as part of your anesthesia regimen to have for your reference - if you ever need to have a surgical procedure in the future, you may want to notify the anesthesiologist of what happened after this recent surgery - they may chose to avoid the medicines that were used. On the day of discharge, your resting oxygen saturation was 92% on room air - not totally normal, but acceptable. When walking (physical exertion), your saturation dropped as low as 71%. We discussed this low level puts you at risk for anoxic brain or heart injury (low oxygen to the brain or heart could cause irreversible damage, such as a heart attack or stroke). We recommend you avoid significant physical exertion over the next few days to prevent your oxygen saturation from dropping. If you feel winded or SOB -- that is a sign that you are doing too much and need to rest and relax. We recommend you purchase a pulse oximeter (available at any drug store) to periodically check your oxygen saturation while at home. If it drops below 90% for a period of 5 minutes - return to the emergency department. We expect your breathing will improve each day - if you find yourself not developing more stamina (continue to feel winded after minimal activity without much improvement)- please contact your primary care doctor or return to the hospital. Please follow up with your orthopedic surgeon, Dr. Delcid, as directed for your hip. Please also follow up with a primary care physician within 5 days regarding your lungs: Dr Candida Pratt MD, [facility] [address], [address] [phone] Pending Studies at Discharge: No Stand-Alone Forms: My [facility], Smoking Cessation Medications and DC Order Prescriptions: New aspirin 81 mg Tablet,Delayed Release (Dr/Ec) 81 mg PO DAILY 10 Days Qty: 10 RF: 0 Continued diclofenac sodium 75 mg Tablet,Delayed Release (Dr/Ec) 75 mg PO BID PRN (Reason: Pain) RF: 0 Discharge Orders: Discharge Order (Routine); Ordered 05/22/20 Ordered By: Candida Pratt Admission Data Admit Date/Time: 05/20/20 19:47 Attending Provider: Leonidas Eldridge Admit Provider: Eugenia Abdul Primary Care Provider: PT,JOSÉ LUIS Other Providers: Boris Blandon ; Eugenia Abdul Other Interventions: Discharge Summary Assessment (RN) Last Done: 05/22/20 15:06 Supervising Physician Co-Signing Physician Notes I personally examined the patient and verified all bowie points of history and exam, discussed case, and agree with decision making with Dr Pratt. Seen twice again today. From a breathing perspective he feels fine. He has no dyspnea at rest, and while he desaturates with exertion he has no dyspnea on exertion. He did not notably desaturate overnight. He very much wants to go home. Vitals noted, in general he is awake and alert pleasant no distress. HEENT normocephalic atraumatic mucous membranes moist. Lungs are clear to auscultation bilaterally no rales rhonchi or wheezes good effort no accessory muscle use, no conversational dyspnea. Acute hypoxic respiratory failureappears to be pulmonary edema relatedthe pulmonary edema seems to be a vasodilatory reaction either to the anesthesia or possibly to negative pressure in his chest if he was biting on the tube or some other such insults. At the bedside he looks and feels fine, but my concern is that he still desaturates quite significantly with exertion. When seeing him t his morning obviously he is much better than he was whenever he was first admitted given that he has been off of supplemental oxygen for more than 24 hours, and he was strongly wanting to go homebut as we discussed his desaturations, we discussed that having any degree of prolonged hypoxia would put him at significant risk for respiratory distress, and potentially long-term catastrophes such as an anoxic brain injury, myocardial fatigue, or even . Expressed understanding of this but also noted that because he feels okay, and at rest he does not desaturate at all, he very much wanted to go home with the provision that he take it extremely easy until he improves. Given his blood pressure was high enough to offer a margin of error, I requested that we at least give a trial dose of Lasix to see if that helps mobilize the fluid more, he agreed to this. Recheck him in the afternoonhe continues to feel fine, but continues to desaturate with exertion. That said he was strongly desirous of going homeexpresses a good logical understanding of the risks. We instructed him very carefully on getting a pulse ox, monitoring his oxygen numbers at home, and gave him very strict and quite conservative criteria on when to reseek care. Basically should he not be able to maintain a pulse ox greater than 90% for even 5 minutes he should be back in the emergency room JOVANNA, and if he does not see day to day improvement in his O2 saturations with exertion/his ability to exert he should be seen in his PCPs office JOVANNA. Should he have any doubts or distress or any other problems we would rather have him back right away. That said, even though I personally would have preferred him to stay longer for observation, given that he has been clinically stable, his O2 sats rebounded very quickly with rest, and he has a very rational understanding of his own personal risk and benefit balance given his situation, his plan to go home, while I disagree with it, is rational. In that respect I did not make him leave against advice, and we tried to facilitate outpatient follow-up. Otherwise as above. Resident Activity Tracking Resident Involvement: Resident Care Provided Care Provided: Adult Hospital Medicine
--- NOTE | 2020-05-22 16:12 | Billing Data ---
Date of Service May 22, 2020 Coding Level of Care Code D/C Day Management >30 mins
--- NOTE | 2020-05-22 21:28 | Billing Data ---
Date of Service May 22, 2020 Coding Level of Care Code 64775 OBS Care - Level 3
== END 2020-05-22 15:28 | disposition home or self-care (01) | DRG 205 ==
LOC: ED 16:19 → SUATTDRO 19:47 → 2W 19:47